=== PATIENT | male | born 1940 | race Caucasian/White ===

== ENCOUNTER 2018-09-14 14:56 | Observation (INO) | payer MEDICARE, OTHER ==
[2018-09-14 15:09] LABS: ADD MAN DIFF? NO
[2018-09-14 15:10] LABS: BASOPHILS % 0.7 % (0.0-2.0); EOSINOPHILS # 0.1 10^3/ul (0.0-0.5); EOSINOPHILS % 1.9 % (0.0-7.0); HEMATOCRIT 33.1 % (42.0-52.0); HEMOGLOBIN 10.6 g/dl (14.0-18.0); LYMPHOCYTES # 0.8 10^3/ul (0.8-2.9); LYMPHOCYTES % 13.7 % (15.0-51.0); MEAN CORPUSCULAR HEMOGLOBIN 33.9 pg (29.0-33.0); MEAN CORPUSCULAR VOLUME 105.8 fl (82.0-101.0); MEAN PLATELET VOLUME 10.1 fl (7.4-10.4); MONOCYTE # 0.6 10^3/ul (0.3-0.9); MONOCYTES % 9.3 % (0.0-11.0); NEUTROPHIL # 4.4 10^3/ul (1.6-7.5); NEUTROPHILS % 74.1 % (39.0-77.0); PLATELET COUNT 167 10^3/UL (140-415); RED BLOOD COUNT 3.13 10^6/ul (4.70-6.10); RED CELL DISTRIBUTION WIDTH 13.1 % (11.5-14.5)
[2018-09-14 15:10] LABS: WHITE BLOOD COUNT 5.9 10^3/ul (4.8-10.8)
[2018-09-14 15:32] LABS: ANION GAP 15 (5-13); BLOOD UREA NITROGEN 93 mg/dl (7-20); CARBON DIOXIDE 25 mmol/L (21-31); CHLORIDE 101 mmol/L (97-110); CREATININE 8.03 mg/dl (0.61-1.24); GLUCOSE 143 mg/dl (70-220); POTASSIUM 5.2 mmol/L (3.5-5.1); SODIUM 141 mmol/L (135-144)
[2018-09-14 15:43] LABS: TROPONIN-I < 0.012 ng/ml (0.000-0.120)
[2018-09-14] MEDS ORDERED: ONDANSETRON 4 MG INJ IV (16:00)
[2018-09-14] MEDS ORDERED: ACETAMINOPHEN 325 MG TAB PO (16:00)
[2018-09-14] MEDS ORDERED: BISACODYL 10 MG SUPP PR (17:00)
[2018-09-14] MEDS ORDERED: NACL 0.9% 3 ML SYG IV (17:00)
[2018-09-14] MEDS ORDERED: HYDROCODONE/APAP (5/325) TAB PO (17:00)
[2018-09-14] MEDS ORDERED: ACETAMINOPHEN 500 MG TAB PO (17:00)
[2018-09-14] MEDS ORDERED: TIZANIDINE 2 MG TAB PO (17:00)
[2018-09-14] MEDS ORDERED: HEPARIN 5,000 UNIT/0.5 ML VIAL (20:11)
[2018-09-14] MEDS: CALCIUM ACETATE 667 MG CAP PO (20:25)
[2018-09-14] MEDS: MIRTAZAPINE 15 MG TAB PO (20:25)
[2018-09-14] MEDS: GABAPENTIN 100 MG CAP PO (20:25)
[2018-09-14] MEDS: ATORVASTATIN 20 MG TAB PO (20:25)
[2018-09-14] MEDS: HEPARIN SODIUM 5,000 UNIT/ML VIAL SC (20:27)
[2018-09-14] MEDS: oxyCODONE 5 MG TAB PO (20:31)
[2018-09-15] MEDS ORDERED: SODIUM CHLORIDE 0.9% 1L BAG IV (03:30)
[2018-09-15 05:14] LABS: ADD MAN DIFF? NO
[2018-09-15 05:20] LABS: WHITE BLOOD COUNT 5.1 10^3/ul (4.8-10.8)
[2018-09-15 05:20] LABS: BASOPHILS % 0.6 % (0.0-2.0); EOSINOPHILS # 0.2 10^3/ul (0.0-0.5); EOSINOPHILS % 2.9 % (0.0-7.0); HEMATOCRIT 31.9 % (42.0-52.0); LYMPHOCYTES # 1.2 10^3/ul (0.8-2.9); LYMPHOCYTES % 23.3 % (15.0-51.0); MEAN CORPUSCULAR HEMOGLOBIN 33.4 pg (29.0-33.0); MEAN CORPUSCULAR HGB CONC 31.3 g/dl (32.0-37.0); MEAN CORPUSCULAR VOLUME 106.7 fl (82.0-101.0); MEAN PLATELET VOLUME 10.7 fl (7.4-10.4); MONOCYTE # 0.6 10^3/ul (0.3-0.9); MONOCYTES % 10.8 % (0.0-11.0); NEUTROPHIL # 3.2 10^3/ul (1.6-7.5); PLATELET COUNT 144 10^3/UL (140-415); RED BLOOD COUNT 2.99 10^6/ul (4.70-6.10)
[2018-09-15 05:57] LABS: ALANINE AMINOTRANSFERASE 23 IU/L (13-69); ALBUMIN 2.8 g/dl (3.3-4.9); ALKALINE PHOSPHATASE 100 IU/L (42-121); ANION GAP 19 (5-13); ASPARTATE AMINO TRANSFERASE 18 IU/L (15-46); BLOOD UREA NITROGEN 106 mg/dl (7-20); CALCIUM 7.2 mg/dl (8.4-10.2); CARBON DIOXIDE 24 mmol/L (21-31); CHLORIDE 101 mmol/L (97-110); CREATININE 8.52 mg/dl (0.61-1.24); GLUCOSE 70 mg/dl (70-220); POTASSIUM 5.5 mmol/L (3.5-5.1); SODIUM 144 mmol/L (135-144); TOTAL PROTEIN 5.6 g/dl (6.1-8.1)
[2018-09-15 06:10] LABS: HEPATITIS B SURFACE ANTIGEN NEGATIVE (NEGATIVE)
[2018-09-15] MEDS ORDERED: HEPARIN 5,000 UNIT/0.5 ML VIAL ×2 (08:59→20:08)
[2018-09-15] MEDS: CINACALCET 30 MG TAB PO (09:00)
[2018-09-15] MEDS: POLYETHYLENE GLYCOL 17 GM PACKET PO (09:00)
[2018-09-15] MEDS: FAMOTIDINE 20 MG TAB PO (09:07)
[2018-09-15] MEDS: GABAPENTIN 100 MG CAP PO ×3 (09:07→20:53)
[2018-09-15] MEDS: FERROUS SULFATE (EC) 325 MG TAB PO (09:07)
[2018-09-15] MEDS: CLOPIDOGREL 75 MG TAB PO (09:07)
[2018-09-15] MEDS: CALCIUM ACETATE 667 MG CAP PO ×3 (09:07→17:19)
[2018-09-15] MEDS: MULTIVIT/CA CARB/B CMPLX/FA TAB PO (09:07)
[2018-09-15] MEDS: CHOLECALCIFEROL 2,000 UNIT CAP PO (09:07)
[2018-09-15] MEDS: HEPARIN SODIUM 5,000 UNIT/ML VIAL SC ×2 (09:08→20:54)
[2018-09-15 10:27] LABS: HEMOGLOBIN A1C 5.4 % (0-5.9)
[2018-09-15] MEDS: ALBUMIN HUMAN 25% 100 ML IV (11:26)
[2018-09-15] MEDS: ATORVASTATIN 20 MG TAB PO (20:53)
[2018-09-15] MEDS: MIRTAZAPINE 15 MG TAB PO (20:54)
[2018-09-15] MEDS: oxyCODONE 5 MG TAB PO (21:27)
[2018-09-16 04:58] LABS: ADD MAN DIFF? NO
[2018-09-16 05:03] LABS: BASOPHILS % 0.7 % (0.0-2.0); EOSINOPHILS # 0.1 10^3/ul (0.0-0.5); EOSINOPHILS % 2.2 % (0.0-7.0); HEMATOCRIT 32.7 % (42.0-52.0); HEMOGLOBIN 10.5 g/dl (14.0-18.0); LYMPHOCYTES % 21.7 % (15.0-51.0); MEAN CORPUSCULAR HGB CONC 32.1 g/dl (32.0-37.0); MEAN CORPUSCULAR VOLUME 105.8 fl (82.0-101.0); MEAN PLATELET VOLUME 10.6 fl (7.4-10.4); MONOCYTE # 0.6 10^3/ul (0.3-0.9); MONOCYTES % 13.8 % (0.0-11.0); NEUTROPHIL # 2.8 10^3/ul (1.6-7.5); NEUTROPHILS % 61.2 % (39.0-77.0); PLATELET COUNT 153 10^3/UL (140-415); RED BLOOD COUNT 3.09 10^6/ul (4.70-6.10); RED CELL DISTRIBUTION WIDTH 12.8 % (11.5-14.5)
[2018-09-16 05:03] LABS: WHITE BLOOD COUNT 4.6 10^3/ul (4.8-10.8)
[2018-09-16 05:38] LABS: ANION GAP 12 (5-13); BLOOD UREA NITROGEN 54 mg/dl (7-20); CALCIUM 7.9 mg/dl (8.4-10.2); CARBON DIOXIDE 28 mmol/L (21-31); CHLORIDE 105 mmol/L (97-110); CREATININE 5.11 mg/dl (0.61-1.24); GLUCOSE 72 mg/dl (70-220); MAGNESIUM 2.2 mg/dl (1.7-2.5); PHOSPHORUS 6.1 mg/dl (2.5-4.9); POTASSIUM 5.1 mmol/L (3.5-5.1); SODIUM 145 mmol/L (135-144)
[2018-09-16] MEDS ORDERED: HEPARIN 5,000 UNIT/0.5 ML VIAL (07:59)
[2018-09-16] MEDS: GABAPENTIN 100 MG CAP PO ×2 (08:23→12:52)
[2018-09-16] MEDS: POLYETHYLENE GLYCOL 17 GM PACKET PO (08:23)
[2018-09-16] MEDS: FERROUS SULFATE (EC) 325 MG TAB PO (08:23)
[2018-09-16] MEDS: CHOLECALCIFEROL 2,000 UNIT CAP PO (08:24)
[2018-09-16] MEDS: FAMOTIDINE 20 MG TAB PO (08:24)
[2018-09-16] MEDS: CLOPIDOGREL 75 MG TAB PO (08:24)
[2018-09-16] MEDS: MULTIVIT/CA CARB/B CMPLX/FA TAB PO (08:24)
[2018-09-16] MEDS: CALCIUM ACETATE 667 MG CAP PO ×2 (08:24→12:15)
[2018-09-16] MEDS: HEPARIN SODIUM 5,000 UNIT/ML VIAL SC (08:25)
[2018-09-16] MEDS: MIDODRINE 5 MG TAB PO (10:42)
[2018-09-16] MEDS: CINACALCET 30 MG TAB PO (10:43)
[2018-09-16] MEDS: oxyCODONE 5 MG TAB PO (12:51)
== END 2018-09-16 15:02 | disposition home or self-care (01) ==
LOC: E/R 14:56 → PP2 18:19
DX: I12.0 Hypertensive chronic kidney disease with stage 5 chronic kidney disease or end stage renal disease (principal); N18.6 End stage renal disease; E87.5 Hyperkalemia; F17.200 Nicotine dependence, unspecified, uncomplicated; E11.22 Type 2 diabetes mellitus with diabetic chronic kidney disease; D63.1 Anemia in chronic kidney disease; E83.9 Disorder of mineral metabolism, unspecified; E11.40 Type 2 diabetes mellitus with diabetic neuropathy, unspecified; G89.4 Chronic pain syndrome; E11.51 Type 2 diabetes mellitus with diabetic peripheral angiopathy without gangrene; E87.0 Hyperosmolality and hypernatremia; Z89.612 Acquired absence of left leg above knee; Z89.611 Acquired absence of right leg above knee; Z99.2 Dependence on renal dialysis
CPT/HCPCS: 36415; 71045; 80048; 80053; 83036; 83735; 84100; 84484; 85025; 87081; 87340; 90935; 93005; 99285-25

== ENCOUNTER 2019-07-23 13:05 | Inpatient (IN) | payer MEDICARE, OTHER ==
[2019-07-23 13:50] LABS: ADD MAN DIFF? NO
[2019-07-23] MEDS: SOD CHLORIDE 0.9% 250 ML IV (13:54)
[2019-07-23 13:57] LABS: BASOPHILS % 0.5 % (0.0-2.0); EOSINOPHILS # 0.1 10^3/ul (0.0-0.5); HEMOGLOBIN 10.8 g/dl (14.0-18.0); LYMPHOCYTES # 1.3 10^3/ul (0.8-2.9); MEAN CORPUSCULAR HEMOGLOBIN 34.6 pg (29.0-33.0); MEAN CORPUSCULAR HGB CONC 31.8 g/dl (32.0-37.0); MEAN PLATELET VOLUME 10.3 fl (7.4-10.4); MONOCYTE # 0.5 10^3/ul (0.3-0.9); MONOCYTES % 8.9 % (0.0-11.0); NEUTROPHILS % 66.4 % (39.0-77.0); PLATELET COUNT 150 10^3/UL (140-415); RED BLOOD COUNT 3.12 10^6/ul (4.70-6.10)
[2019-07-23 13:57] LABS: WHITE BLOOD COUNT 6.1 10^3/ul (4.8-10.8)
[2019-07-23] MEDS: ONDANSETRON 4 MG INJ IV (14:05)
[2019-07-23] MEDS: NALOXONE 2 MG SYG IV (14:05)
[2019-07-23 14:10] LABS: ALANINE AMINOTRANSFERASE 17 IU/L (13-69); ALBUMIN 3.8 g/dl (3.3-4.9); ALBUMIN/GLOBULIN RATIO 1.31; ALKALINE PHOSPHATASE 210 IU/L (42-121); ANION GAP 16 (5-13); ASPARTATE AMINO TRANSFERASE 18 IU/L (15-46); BLOOD UREA NITROGEN 70 mg/dl (7-20); CALCIUM 9.2 mg/dl (8.4-10.2); CARBON DIOXIDE 23 mmol/L (21-31); CHLORIDE 97 mmol/L (97-110); CREATININE 8.08 mg/dl (0.61-1.24); GLUCOSE 170 mg/dl (70-220); LIPASE 154 U/L (23-300); POTASSIUM 4.3 mmol/L (3.5-5.1); SODIUM 136 mmol/L (135-144); TOTAL PROTEIN 6.7 g/dl (6.1-8.1)
[2019-07-23 14:21] LABS: TROPONIN-I < 0.012 ng/ml (0.000-0.120)
[2019-07-23] MEDS: SOD CHLORIDE 0.9% 1,000 ML IV ×3 (14:35→23:00)
[2019-07-23 17:27] LABS: ADD UMIC YES; UR ASCORBIC ACID NEGATIVE (NEGATIVE); UR BACTERIA MANY /HPF (NONE SEEN); UR BILIRUBIN (Dip) NEGATIVE (NEGATIVE); UR BLOOD (Dip) 3+ mg/dL (NEGATIVE); UR CLARITY TURBID (CLEAR); UR COLOR YELLOW (YELLOW); UR GLUCOSE (Dip) NEGATIVE (NEGATIVE); UR KETONES (Dip) NEGATIVE (NEGATIVE); UR LEUKOCYTE ESTERASE (Dip) 2+ Leu/ul (NEGATIVE); UR NITRITE (Dip) NEGATIVE (NEGATIVE); UR RBC > 182 /HPF (0-5); UR TOTAL PROTEIN (Dip) 2+ mg/dl (NEGATIVE); UR UROBILINOGEN (Dip) NEGATIVE (NEGATIVE); UR WBC > 182 /HPF (0-5)
[2019-07-23] MEDS: CEFEPIME 1GM/50 ML (PMX) 50 ML IVPB (17:34)
[2019-07-23] MEDS ORDERED: morphine 2 MG INJ IV (20:00)
[2019-07-23] MEDS ORDERED: ZOLPIDEM 5 MG TAB PO (20:00)
[2019-07-23] MEDS ORDERED: ONDANSETRON 4 MG INJ IV (20:00)
[2019-07-23] MEDS ORDERED: BISACODYL 10 MG SUPP PR (20:00)
[2019-07-23] MEDS ORDERED: MAGNESIUM HYDROXIDE 30ML CUP PO (20:00)
[2019-07-23] MEDS ORDERED: NACL 0.9% 3 ML SYG IV (20:00)
[2019-07-23] MEDS ORDERED: DOCUSATE SODIUM 100 MG CAP PO (20:00)
[2019-07-23] MEDS ORDERED: ACETAMINOPHEN 325 MG TAB PO (20:00)
[2019-07-23] MEDS ORDERED: MINERAL OIL 133 ML ENEMA PR (20:00)
[2019-07-23 21:23] LABS: LACTIC ACID 1.3 mmol/L (0.5-2.0)
[2019-07-23] MEDS: ALBUMIN HUMAN 25% 100 ML IV (21:39)
[2019-07-23] MEDS: CALCIUM ACETATE 667 MG CAP PO (21:40)
[2019-07-23] MEDS: TIZANIDINE 2 MG TAB PO (21:40)
[2019-07-23] MEDS: GABAPENTIN 300 MG CAP PO (21:40)
[2019-07-23] MEDS: DICLOFENAC 0.1% 2.5 ML OPH RIGHT EYE (21:40)
[2019-07-23] MEDS: MIRTAZAPINE 15 MG TAB PO (21:40)
[2019-07-23] MEDS: SEVELAMER CARBONATE 0.8 GM PKT PO (21:48)
[2019-07-23] MEDS: CEFTRIAXONE 1 GM/50 ML (PMX) 50 ML IVPB (21:48)
[2019-07-23] MEDS: FENTAnyl 50 MCG/ML VIAL IV (23:00)
[2019-07-24] MEDS: HYDROCODONE/APAP (5/325) TAB PO ×2 (00:49→19:03)
[2019-07-24] MEDS: ALBUMIN HUMAN 25% 100 ML IV ×2 (05:12→13:32)
[2019-07-24 05:14] LABS: ADD MAN DIFF? NO
[2019-07-24 05:21] LABS: WHITE BLOOD COUNT 5.8 10^3/ul (4.8-10.8)
[2019-07-24 05:21] LABS: BASOPHILS % 0.3 % (0.0-2.0); EOSINOPHILS # 0.1 10^3/ul (0.0-0.5); EOSINOPHILS % 1.7 % (0.0-7.0); HEMATOCRIT 30.5 % (42.0-52.0); HEMOGLOBIN 9.4 g/dl (14.0-18.0); LYMPHOCYTES # 0.9 10^3/ul (0.8-2.9); LYMPHOCYTES % 14.9 % (15.0-51.0); MEAN CORPUSCULAR HEMOGLOBIN 34.2 pg (29.0-33.0); MEAN CORPUSCULAR HGB CONC 30.8 g/dl (32.0-37.0); MEAN CORPUSCULAR VOLUME 110.9 fl (82.0-101.0); MEAN PLATELET VOLUME 10.5 fl (7.4-10.4); MONOCYTE # 0.5 10^3/ul (0.3-0.9); MONOCYTES % 8.9 % (0.0-11.0); NEUTROPHIL # 4.2 10^3/ul (1.6-7.5); NEUTROPHILS % 72.8 % (39.0-77.0); PLATELET COUNT 133 10^3/UL (140-415); RED BLOOD COUNT 2.75 10^6/ul (4.70-6.10); RED CELL DISTRIBUTION WIDTH 15.2 % (11.5-14.5)
[2019-07-24 05:47] LABS: ANION GAP 14 (5-13); BLOOD UREA NITROGEN 74 mg/dl (7-20); CALCIUM 8.8 mg/dl (8.4-10.2); CARBON DIOXIDE 20 mmol/L (21-31); CHLORIDE 107 mmol/L (97-110); CREATININE 8.11 mg/dl (0.61-1.24); GLUCOSE 85 mg/dl (70-220); MAGNESIUM 2.2 mg/dl (1.7-2.5); PHOSPHORUS 5.3 mg/dl (2.5-4.9); POTASSIUM 5.2 mmol/L (3.5-5.1); SODIUM 141 mmol/L (135-144)
[2019-07-24 06:08] LABS: PLATELET COUNT 133 10^3/UL (140-415)
[2019-07-24 06:34] LABS: INR 1.01; PROTIME 13.4 Sec (11.9-14.9)
[2019-07-24 06:35] LABS: PARTIAL THROMBOPLASTIN TIME 36.4 Sec (23.0-35.0)
[2019-07-24 06:54] LABS: FOLATE > 20.0 ng/ml (2.8-20.0)
[2019-07-24 06:54] LABS: HEMOGLOBIN A1C 6.4 % (0-5.9)
[2019-07-24] MEDS: ACCU-CHEK XX ×4 (07:05→20:58)
[2019-07-24] MEDS: TIZANIDINE 2 MG TAB PO (10:20)
[2019-07-24] MEDS: CLOPIDOGREL 75 MG TAB PO (10:20)
[2019-07-24] MEDS: CINACALCET 30 MG TAB PO (10:20)
[2019-07-24] MEDS: MULTIVIT/CA CARB/B CMPLX/FA TAB PO (10:20)
[2019-07-24] MEDS: GABAPENTIN 300 MG CAP PO ×3 (10:21→20:55)
[2019-07-24] MEDS: SEVELAMER CARBONATE 0.8 GM PKT PO ×3 (10:21→21:55)
[2019-07-24] MEDS: CALCIUM ACETATE 667 MG CAP PO ×3 (10:21→20:56)
[2019-07-24] MEDS ORDERED: TIZANIDINE 2 MG TAB PO (11:30)
[2019-07-24] MEDS: DICLOFENAC 0.1% 2.5 ML OPH RIGHT EYE ×4 (13:00→20:56)
[2019-07-24 13:19] LABS: HEPATITIS B SURFACE ANTIGEN NEGATIVE (NEGATIVE)
[2019-07-24] MEDS: MIRTAZAPINE 15 MG TAB PO (20:56)
[2019-07-24] MEDS: CEFTRIAXONE 1 GM/50 ML (PMX) 50 ML IVPB (20:56)
[2019-07-25 06:56] LABS: ADD MAN DIFF? NO
[2019-07-25 07:04] LABS: WHITE BLOOD COUNT 4.7 10^3/ul (4.8-10.8)
[2019-07-25 07:04] LABS: BASOPHILS % 0.6 % (0.0-2.0); EOSINOPHILS # 0.1 10^3/ul (0.0-0.5); EOSINOPHILS % 1.3 % (0.0-7.0); HEMATOCRIT 30.3 % (42.0-52.0); HEMOGLOBIN 9.4 g/dl (14.0-18.0); LYMPHOCYTES # 0.6 10^3/ul (0.8-2.9); LYMPHOCYTES % 12.8 % (15.0-51.0); MEAN CORPUSCULAR HEMOGLOBIN 33.8 pg (29.0-33.0); MEAN PLATELET VOLUME 10.7 fl (7.4-10.4); MONOCYTE # 0.5 10^3/ul (0.3-0.9); MONOCYTES % 10.4 % (0.0-11.0); NEUTROPHIL # 3.5 10^3/ul (1.6-7.5); PLATELET COUNT 131 10^3/UL (140-415); RED BLOOD COUNT 2.78 10^6/ul (4.70-6.10); RED CELL DISTRIBUTION WIDTH 15.4 % (11.5-14.5)
[2019-07-25 07:23] LABS: ANION GAP 6 (5-13); BLOOD UREA NITROGEN 36 mg/dl (7-20); CALCIUM 8.8 mg/dl (8.4-10.2); CARBON DIOXIDE 31 mmol/L (21-31); CHLORIDE 101 mmol/L (97-110); CREATININE 4.42 mg/dl (0.61-1.24); GLUCOSE 115 mg/dl (70-220); PHOSPHORUS 3.2 mg/dl (2.5-4.9); POTASSIUM 4.5 mmol/L (3.5-5.1); SODIUM 138 mmol/L (135-144)
[2019-07-25] MEDS: ACCU-CHEK XX ×4 (07:25→20:26)
[2019-07-25] MEDS: SEVELAMER CARBONATE 0.8 GM PKT PO ×3 (08:27→20:18)
[2019-07-25] MEDS: MULTIVIT/CA CARB/B CMPLX/FA TAB PO (08:28)
[2019-07-25] MEDS: CINACALCET 30 MG TAB PO (08:29)
[2019-07-25] MEDS: CLOPIDOGREL 75 MG TAB PO (08:29)
[2019-07-25] MEDS: MIDODRINE 5 MG TAB PO (08:29)
[2019-07-25] MEDS: CALCIUM ACETATE 667 MG CAP PO ×3 (08:30→20:18)
[2019-07-25] MEDS: GABAPENTIN 300 MG CAP PO ×3 (08:30→20:18)
[2019-07-25] MEDS: DICLOFENAC 0.1% 2.5 ML OPH RIGHT EYE ×4 (09:00→20:25)
[2019-07-25] MEDS: MIRTAZAPINE 15 MG TAB PO (20:18)
[2019-07-25] MEDS: CEFTRIAXONE 1 GM/50 ML (PMX) 50 ML IVPB (20:25)
[2019-07-26] MEDS: ACCU-CHEK XX ×4 (07:52→22:47)
[2019-07-26 08:30] LABS: ADD MAN DIFF? NO
[2019-07-26 08:37] LABS: WHITE BLOOD COUNT 5.5 10^3/ul (4.8-10.8)
[2019-07-26 08:37] LABS: BASOPHILS % 0.4 % (0.0-2.0); EOSINOPHILS # 0.1 10^3/ul (0.0-0.5); EOSINOPHILS % 1.3 % (0.0-7.0); HEMATOCRIT 31.2 % (42.0-52.0); HEMOGLOBIN 9.9 g/dl (14.0-18.0); LYMPHOCYTES # 0.6 10^3/ul (0.8-2.9); LYMPHOCYTES % 11.2 % (15.0-51.0); MEAN CORPUSCULAR HEMOGLOBIN 34.3 pg (29.0-33.0); MEAN CORPUSCULAR HGB CONC 31.7 g/dl (32.0-37.0); MEAN PLATELET VOLUME 10.6 fl (7.4-10.4); MONOCYTE # 0.6 10^3/ul (0.3-0.9); MONOCYTES % 11.2 % (0.0-11.0); NEUTROPHIL # 4.2 10^3/ul (1.6-7.5); NEUTROPHILS % 75.4 % (39.0-77.0); PLATELET COUNT 136 10^3/UL (140-415); RED BLOOD COUNT 2.89 10^6/ul (4.70-6.10); RED CELL DISTRIBUTION WIDTH 15.3 % (11.5-14.5)
[2019-07-26 09:25] LABS: ANION GAP 10 (5-13); BLOOD UREA NITROGEN 46 mg/dl (7-20); CALCIUM 8.6 mg/dl (8.4-10.2); CARBON DIOXIDE 29 mmol/L (21-31); CHLORIDE 98 mmol/L (97-110); CREATININE 6.57 mg/dl (0.61-1.24); GLUCOSE 91 mg/dl (70-220); POTASSIUM 4.8 mmol/L (3.5-5.1); SODIUM 137 mmol/L (135-144)
[2019-07-26] MEDS: MULTIVIT/CA CARB/B CMPLX/FA TAB PO (10:01)
[2019-07-26] MEDS: CINACALCET 30 MG TAB PO (10:01)
[2019-07-26] MEDS: CLOPIDOGREL 75 MG TAB PO (10:01)
[2019-07-26] MEDS: SEVELAMER CARBONATE 0.8 GM PKT PO ×3 (10:02→22:12)
[2019-07-26] MEDS: DICLOFENAC 0.1% 2.5 ML OPH RIGHT EYE ×4 (10:02→22:12)
[2019-07-26] MEDS: CALCIUM ACETATE 667 MG CAP PO ×3 (10:02→22:13)
[2019-07-26] MEDS: GABAPENTIN 300 MG CAP PO ×3 (10:02→22:13)
[2019-07-26] MEDS: FOSFOMYCIN 3 GM PACKET PO (12:09)
[2019-07-26] MEDS: LEVOFLOXACIN 500 MG TAB PO (12:09)
[2019-07-26] MEDS: MIDODRINE 10 MG TABLET PO (20:27)
[2019-07-26] MEDS ORDERED: MIDODRINE 2.5 MG TAB PO (20:30)
[2019-07-26] MEDS ORDERED: MIDODRINE 5 MG TAB PO (20:30)
[2019-07-26] MEDS: ALBUMIN HUMAN 25% 100 ML IV (20:52)
[2019-07-26] MEDS: MIRTAZAPINE 15 MG TAB PO (22:12)
[2019-07-26] MEDS: CEFTRIAXONE 1 GM/50 ML (PMX) 50 ML IVPB (22:13)
== END 2019-07-26 23:30 | disposition home or self-care (01) | DRG 871 ==
LOC: TEL 07-25 02:11 → E/R 13:05 → ICU 17:08
PROC: 06HY33Z Insertion of Infusion Device into Lower Vein, Percutaneous Approach (ICD-10-PCS; principal; 2019-07-24)
DX: A41.9 Sepsis, unspecified organism (principal); N18.6 End stage renal disease; R65.21 Severe sepsis with septic shock; N39.0 Urinary tract infection, site not specified; E87.2 Acidosis; R00.1 Bradycardia, unspecified; E87.5 Hyperkalemia; I25.10 Atherosclerotic heart disease of native coronary artery without angina pectoris; I25.2 Old myocardial infarction; E11.51 Type 2 diabetes mellitus with diabetic peripheral angiopathy without gangrene; Z87.891 Personal history of nicotine dependence; D53.9 Nutritional anemia, unspecified; E83.89 Other disorders of mineral metabolism; Z89.512 Acquired absence of left leg below knee; Z89.511 Acquired absence of right leg below knee
CPT/HCPCS: 36415; 71045; 80048; 80053; 81001; 82607; 82746; 82962; 83036; 83605; 83690; 83735; 84100; 84484; 85025; 85049; 85610; 85670; 85730; 87081; 87340; 90935; 93005; 93306; 96374; 96375; 99285-25